=== PATIENT | male | born 2000 | race Caucasian/White ===

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

== ENCOUNTER → 2024-01-11 17:05 | Outpatient (CLI) | payer OTHER, SELFPAY | PROVIDERS: PCP Family Medicine; Referring Provider Family Medicine; Visit Provider Family Medicine | DX: Z01.84 Encounter for antibody response examination (principal); Z28.39 Other underimmunization status | CPT/HCPCS: 36415; 86706 ==